=== PATIENT | female | born 1955 | race Two or more races ===

== ENCOUNTER 2017-04-19 07:07 | Day surgery (SDC) | payer OTHER ==
[2017-04-19] MEDS ORDERED: FENTAnyl 50 MCG/ML VIAL (09:27)
[2017-04-19] MEDS ORDERED: MIDAZOLAM 1 MG/ML 2 ML INJ ×2 (09:27)
== END 2017-04-19 10:18 | disposition home or self-care (01) ==
LOC: GIL 07:07
DX: Z12.11 Encounter for screening for malignant neoplasm of colon (principal); D12.6 Benign neoplasm of colon, unspecified; K64.8 Other hemorrhoids
CPT/HCPCS: 45380; 88305